=== PATIENT | male | born 1990 | race Caucasian/White ===

== ENCOUNTER 2021-12-26 03:05 | Inpatient (IN) ==
[2021-12-26] MEDS ORDERED: Ondansetron 4 MG/2 ML VIAL IVP PRN (05:17)
[2021-12-26] MEDS ORDERED: Melatonin 3 MG TABLET PO PRN (05:17)
[2021-12-26] MEDS ORDERED: Naloxone 0.4 MG/ML INJ IVP PRN (05:17)
[2021-12-26] MEDS: *HR* HYDROcodone/Acet 5/325 mg TABLET PO PRN ×3 (05:55→18:07)
[2021-12-26] MEDS ORDERED: Acetaminophen 325 MG TABLET PO PRN (06:00)
[2021-12-26] MEDS ORDERED: Dextrose 4 GM Chewable Tablets PO PRN ×2 (06:03)
[2021-12-26] MEDS ORDERED: D5% in Water 1,000 ML IVC PRN (06:03)
[2021-12-26] MEDS ORDERED: *HR* Dextrose 50 % in Water (Syg) 50 ML SYRINGE IVP PRN (06:03)
[2021-12-26 07:28] LABS: Basophils % 0.4 %; Eosinophils # 0.3 K/mcL (0.0-0.6); Eosinophils % 2.8 %; Hematocrit 39.5 % (37.5-50.1); Hemoglobin 13.2 g/dL (12.9-16.9); Immature Granulocytes % 0.5 % (0-4); Lymphocytes # 1.7 K/mcL (0.6-4.6); Lymphocytes % 16.3 %; Mean Corpuscular HGB Conc 33.4 g/dL (31.6-35.5); Mean Corpuscular Hemoglobin 30.7 pg (28.0-33.3); Mean Corpuscular Volume 91.9 fL (83.0-100.0); Mean Platelet Volume 8.9 fL (9.4-12.4); Monocytes % 9.8 %; Neutrophils # 7.4 K/mcL (1.6-8.9); Platelet Count 267 K/mcL (140-400); Red Cell Distribution Width 12.9 % (11.5-14.5); Segmented Neutrophils % 70.2 %; White Blood Count 10.6 K/mcL (4.3-11.1)
[2021-12-26 07:35] LABS: INR 0.9; Prothrombin Time 10.5 Seconds (9.4-12.1)
[2021-12-26 07:38] LABS: Activated Partial Thrombo Time 30.8 Seconds (26.0-36.0)
[2021-12-26] MEDS: Lactobacillus 1 EACH CAP.SPRINK PO SCH ×2 (07:50→20:55)
[2021-12-26 07:53] LABS: BUN/Creatinine Ratio 26 (6-26); Blood Urea Nitrogen 15 mg/dL (6-20); Calcium 9.1 mg/dL (8.6-10.3); Carbon Dioxide 30 mEq/L (23-29); Chloride 105 mEq/L (98-107); Glucose 118 mg/dL (70-105); Magnesium 1.9 mg/dL (1.6-2.6); Osmolality,Calculated 292 (280-300); Phosphorous 3.2 mg/dL (2.7-4.5); Potassium 3.8 mEq/L (3.5-5.1); Sodium 140 mEq/L (136-145); Troponin I < 0.03 ng/mL (< 0.04); eGFR For African Americans > 60 (> 60); eGFR For Non-African Americans > 60 (> 60)
[2021-12-26 07:56] LABS: C-Reactive Protein 27 mg/L (Less than 10)
[2021-12-26] MEDS ORDERED: Ertapenem 1,000 MG in 0.9 % Sodium Chloride Mini Bag 100 ML IVPB SCH (09:00)
[2021-12-26 11:36] LABS: Amphetamine Screen,Urine Positive ng/mL (Cutoff=1000); Barbiturate Screen,Urine Negative ng/mL (Cutoff=200); Benzodiazepines Screen,Urine Negative ng/mL (Cutoff=200); Cannabinoid Screen,Urine Positive ng/mL (Cutoff = 50); Cocaine Screen,Urine Negative ng/mL (Cutoff= 300); Opiate Screen,Urine Positive ng/mL (Cutoff=300); Phencyclidine Screen,Urine Negative ng/mL (Cutoff=25)
[2021-12-26] MEDS: levoFLOXacin 750 MG/150 ML 750 MG/150 ML BAG IVPB SCH (11:48)
[2021-12-26] MEDS: Nicotine 14 MG PATCH.TD24 TD SCH ×2 (11:52→15:33)
[2021-12-26] MEDS: *HR* OxyCODONE/APAP 5/325 TABLET PO PRN ×2 (13:21→20:56)
[2021-12-26] MEDS ORDERED: *HR* HYDROmorphone 2 MG/ML SYRINGE IVP ONE (14:14)
[2021-12-26] MEDS: *HR* FentaNYL PATCH 25 MCG PATCH TD SCH (19:09)
[2021-12-26] MEDS: Vancomycin 1,500 MG/265 ML IV.SOLN IVPB SCH (20:56)
[2021-12-26] MEDS: ALPRAZolam 0.25 MG TABLET PO PRN (22:45)
[2021-12-27] MEDS: *HR* HYDROcodone/Acet 5/325 mg TABLET PO PRN ×2 (01:09→08:46)
[2021-12-27] MEDS: *HR* OxyCODONE/APAP 5/325 TABLET PO PRN (03:16)
[2021-12-27] MEDS: *HR* Enoxaparin 40 MG/0.4 ML SYRINGE SQ SCH (04:22)
[2021-12-27] MEDS: Lactobacillus 1 EACH CAP.SPRINK PO SCH ×2 (07:50→20:24)
[2021-12-27] MEDS: ALPRAZolam 0.25 MG TABLET PO PRN (08:46)
[2021-12-27] MEDS: levoFLOXacin 750 MG/150 ML 750 MG/150 ML BAG IVPB SCH (08:50)
[2021-12-27] MEDS: Vancomycin 1,500 MG/265 ML IV.SOLN IVPB SCH (10:37)
[2021-12-27] MEDS: Nicotine 14 MG PATCH.TD24 TD SCH (10:39)
[2021-12-27] MEDS: Acetaminophen IV 1,000 MG/100 ML BAG IVPB SCH ×3 (12:14→23:39)
[2021-12-27] MEDS ORDERED: *HR* Propofol 200 MG/20 ML VIAL IVP ONE (12:38)
[2021-12-27] MEDS ORDERED: Lidocaine -MPF 2% 5 ML VIAL ONE (12:38)
[2021-12-27] MEDS ORDERED: *HR* FentaNYL (PF) 100 MCG/2 ML VIAL ONE (12:38)
[2021-12-27] MEDS ORDERED: *HR* Midazolam HCl 2 MG/2 ML VIAL ONE (12:38)
[2021-12-27] MEDS ORDERED: Lidocaine/EPI 1:100k 1% 50 ML VIAL ONE (13:07)
[2021-12-27] MEDS ORDERED: Ketamine HCL *QUVA* 50mg (1mL) SYRINGE ONE (13:25)
[2021-12-27] MEDS ORDERED: Ringers Solution, Lactated 1,000 ML IVC SCH (13:30)
[2021-12-27] MEDS ORDERED: *HR* HYDROmorphone PF 0.5 MG/0.5 ML SYRINGE IVP PRN (13:36)
[2021-12-27] MEDS: *HR* FentaNYL (PF) 100 MCG/2 ML VIAL IVP PRN ×2 (15:23→15:42)
[2021-12-27] MEDS: Fluticasone Propionate Nasal 50 MCG/SPRAY BOTTLE NS SCH (20:24)
[2021-12-27] MEDS: Vancomycin 1,750 MG/517.5 ML IV.SOLN IVPB SCH (20:24)
[2021-12-28 04:42] LABS: Basophils % 0.1 %; Hematocrit 36.5 % (37.5-50.1); Hemoglobin 12.4 g/dL (12.9-16.9); Immature Granulocytes % 0.6 % (0-4); Lymphocytes # 0.8 K/mcL (0.6-4.6); Lymphocytes % 5.2 %; Mean Corpuscular Hemoglobin 30.8 pg (28.0-33.3); Mean Corpuscular Volume 90.6 fL (83.0-100.0); Monocytes # 0.9 K/mcL (0.0-1.3); Monocytes % 5.5 %; Neutrophils # 13.8 K/mcL (1.6-8.9); Platelet Count 269 K/mcL (140-400); Red Blood Count 4.03 M/mcL (4.19-5.50); Red Cell Distribution Width 12.1 % (11.5-14.5); Segmented Neutrophils % 88.6 %; White Blood Count 15.6 K/mcL (4.3-11.1)
[2021-12-28] MEDS: Acetaminophen IV 1,000 MG/100 ML BAG IVPB SCH ×3 (05:29→22:43)
[2021-12-28] MEDS: *HR* Enoxaparin 40 MG/0.4 ML SYRINGE SQ SCH ×2 (05:29→05:34)
[2021-12-28 05:39] LABS: BUN/Creatinine Ratio 19 (6-26); Blood Urea Nitrogen 11 mg/dL (6-20); Calcium 8.5 mg/dL (8.6-10.3); Carbon Dioxide 26 mEq/L (23-29); Chloride 101 mEq/L (98-107); Glucose 244 mg/dL (70-105); Osmolality,Calculated 289 (280-300); Sodium 136 mEq/L (136-145); eGFR For African Americans > 60 (> 60); eGFR For Non-African Americans > 60 (> 60)
[2021-12-28] MEDS: levoFLOXacin 750 MG/150 ML 750 MG/150 ML BAG IVPB SCH (08:38)
[2021-12-28] MEDS: Lactobacillus 1 EACH CAP.SPRINK PO SCH ×2 (08:38→19:54)
[2021-12-28] MEDS: Vancomycin 1,750 MG/517.5 ML IV.SOLN IVPB SCH (08:41)
[2021-12-28] MEDS: Nicotine 14 MG PATCH.TD24 TD SCH (08:44)
[2021-12-28] MEDS: Ketorolac 30 MG/ML VIAL IVP PRN (11:07)
[2021-12-28] MEDS: ALPRAZolam 0.25 MG TABLET PO PRN (11:07)
[2021-12-28] MEDS: Fluticasone Propionate Nasal 50 MCG/SPRAY BOTTLE NS SCH (14:03)
[2021-12-28] MEDS: Vancomycin 1,250 MG/262.5 ML IV.SOLN IVPB SCH (17:41)
[2021-12-29] MEDS: Vancomycin 1,250 MG/262.5 ML IV.SOLN IVPB SCH ×3 (00:53→17:52)
[2021-12-29] MEDS: Acetaminophen IV 1,000 MG/100 ML BAG IVPB SCH ×4 (00:53→17:52)
[2021-12-29] MEDS: *HR* Enoxaparin 40 MG/0.4 ML SYRINGE SQ SCH (06:45)
[2021-12-29 06:47] LABS: Basophils # 0.1 K/mcL (0.0-0.2); Basophils % 0.7 %; Eosinophils # 0.1 K/mcL (0.0-0.6); Eosinophils % 0.6 %; Hematocrit 37.4 % (37.5-50.1); Hemoglobin 12.4 g/dL (12.9-16.9); Immature Granulocytes % 1.5 % (0-4); Lymphocytes # 2.4 K/mcL (0.6-4.6); Lymphocytes % 19.3 %; Mean Corpuscular HGB Conc 33.2 g/dL (31.6-35.5); Mean Corpuscular Hemoglobin 30.1 pg (28.0-33.3); Mean Corpuscular Volume 90.8 fL (83.0-100.0); Mean Platelet Volume 8.7 fL (9.4-12.4); Monocytes % 7.9 %; Neutrophils # 8.7 K/mcL (1.6-8.9); Platelet Count 300 K/mcL (140-400); Red Blood Count 4.12 M/mcL (4.19-5.50); Red Cell Distribution Width 12.5 % (11.5-14.5); White Blood Count 12.5 K/mcL (4.3-11.1)
[2021-12-29 07:00] LABS: BUN/Creatinine Ratio 22 (6-26); Blood Urea Nitrogen 14 mg/dL (6-20); Calcium 8.5 mg/dL (8.6-10.3); Carbon Dioxide 29 mEq/L (23-29); Chloride 105 mEq/L (98-107); Glucose 110 mg/dL (70-105); Osmolality,Calculated 291 (280-300); Potassium 4.1 mEq/L (3.5-5.1); Sodium 140 mEq/L (136-145); eGFR For African Americans > 60 (> 60); eGFR For Non-African Americans > 60 (> 60)
[2021-12-29] MEDS ORDERED: *HR* OxyCODONE Immed Rel 5 MG TABLET PO ONE (07:11)
[2021-12-29] MEDS: Lactobacillus 1 EACH CAP.SPRINK PO SCH ×2 (07:26→21:27)
[2021-12-29] MEDS: Nicotine 14 MG PATCH.TD24 TD SCH (11:38)
[2021-12-29] MEDS: Fluticasone Propionate Nasal 50 MCG/SPRAY BOTTLE NS SCH (11:38)
[2021-12-29] MEDS: *HR* LORazepam 2 MG/ML VIAL IVP PRN (20:07)
[2021-12-29] MEDS: *HR* FentaNYL PATCH 25 MCG PATCH TD SCH (21:26)
[2021-12-29] MEDS: Ketorolac 30 MG/ML VIAL IVP PRN (21:27)
[2021-12-30] MEDS: Vancomycin 1,250 MG/262.5 ML IV.SOLN IVPB SCH ×3 (00:55→16:51)
[2021-12-30] MEDS: Acetaminophen IV 1,000 MG/100 ML BAG IVPB SCH ×4 (01:15→17:28)
[2021-12-30] MEDS ORDERED: *HR* OxyCODONE Immed Rel 5 MG TABLET PO ONE (08:03)
[2021-12-30] MEDS: Nicotine 14 MG PATCH.TD24 TD SCH (08:55)
[2021-12-30] MEDS: Lactobacillus 1 EACH CAP.SPRINK PO SCH ×2 (08:55→21:02)
[2021-12-30] MEDS: Fluticasone Propionate Nasal 50 MCG/SPRAY BOTTLE NS SCH (10:46)
[2021-12-30] MEDS: *HR* LORazepam 2 MG/ML VIAL IVP PRN (14:25)
[2021-12-31] MEDS: Acetaminophen IV 1,000 MG/100 ML BAG IVPB SCH ×4 (00:37→17:45)
[2021-12-31] MEDS: Vancomycin 1,250 MG/262.5 ML IV.SOLN IVPB SCH ×3 (04:38→18:23)
[2021-12-31] MEDS: *HR* LORazepam 2 MG/ML VIAL IVP PRN ×3 (04:49→20:59)
[2021-12-31] MEDS: *HR* Enoxaparin 40 MG/0.4 ML SYRINGE SQ SCH ×2 (04:53→09:33)
[2021-12-31] MEDS: Lactobacillus 1 EACH CAP.SPRINK PO SCH ×2 (09:34→20:41)
[2021-12-31] MEDS ORDERED: *HR* OxyCODONE/APAP 7.5/325 TABLET PO PRN (10:45)
[2021-12-31] MEDS: Nicotine 14 MG PATCH.TD24 TD SCH (11:29)
[2021-12-31] MEDS: Fluticasone Propionate Nasal 50 MCG/SPRAY BOTTLE NS SCH (11:29)
[2021-12-31] MEDS: Ketorolac 30 MG/ML VIAL IVP PRN (15:23)
[2021-12-31] MEDS: *HR* OxyCODONE/APAP 7.5/325 TABLET PO PRN (18:00)
[2021-12-31] MEDS ORDERED: traZODone 50 MG TABLET PO PRN (22:23)
[2022-01-01] MEDS: *HR* OxyCODONE/APAP 7.5/325 TABLET PO PRN ×5 (00:23→19:50)
[2022-01-01] MEDS: Acetaminophen IV 1,000 MG/100 ML BAG IVPB SCH ×4 (00:25→14:49)
[2022-01-01] MEDS: Vancomycin 1,250 MG/262.5 ML IV.SOLN IVPB SCH ×3 (01:08→17:41)
[2022-01-01] MEDS: *HR* Enoxaparin 40 MG/0.4 ML SYRINGE SQ SCH (06:02)
[2022-01-01] MEDS: Nicotine 14 MG PATCH.TD24 TD SCH (09:13)
[2022-01-01] MEDS: Fluticasone Propionate Nasal 50 MCG/SPRAY BOTTLE NS SCH (09:13)
[2022-01-01] MEDS: Lactobacillus 1 EACH CAP.SPRINK PO SCH ×2 (09:59→19:49)
[2022-01-01] MEDS: *HR* LORazepam 2 MG/ML VIAL IVP PRN ×3 (10:14→19:51)
[2022-01-01] MEDS: *HR* FentaNYL PATCH 25 MCG PATCH TD SCH (19:52)
[2022-01-02] MEDS: Vancomycin 1,250 MG/262.5 ML IV.SOLN IVPB SCH ×3 (01:01→18:38)
[2022-01-02] MEDS: Acetaminophen IV 1,000 MG/100 ML BAG IVPB SCH ×3 (01:04→12:35)
[2022-01-02] MEDS: *HR* LORazepam 2 MG/ML VIAL IVP PRN ×4 (01:09→18:36)
[2022-01-02] MEDS: *HR* OxyCODONE/APAP 7.5/325 TABLET PO PRN ×4 (01:09→18:35)
[2022-01-02] MEDS: *HR* Enoxaparin 40 MG/0.4 ML SYRINGE SQ SCH (06:20)
[2022-01-02 07:08] LABS: Hematocrit 38.6 % (37.5-50.1); Hemoglobin 13.1 g/dL (12.9-16.9); Mean Corpuscular HGB Conc 33.9 g/dL (31.6-35.5); Mean Corpuscular Hemoglobin 30.2 pg (28.0-33.3); Mean Corpuscular Volume 88.9 fL (83.0-100.0); Mean Platelet Volume 8.4 fL (9.4-12.4); Platelet Count 294 K/mcL (140-400); Red Blood Count 4.34 M/mcL (4.19-5.50); Red Cell Distribution Width 12.3 % (11.5-14.5); White Blood Count 7.8 K/mcL (4.3-11.1)
[2022-01-02 07:24] LABS: BUN/Creatinine Ratio 25 (6-26); Blood Urea Nitrogen 19 mg/dL (6-20); Calcium 9.1 mg/dL (8.6-10.3); Carbon Dioxide 29 mEq/L (23-29); Chloride 102 mEq/L (98-107); Glucose 100 mg/dL (70-105); Osmolality,Calculated 286 (280-300); Potassium 4.4 mEq/L (3.5-5.1); Sodium 137 mEq/L (136-145); eGFR For African Americans > 60 (> 60); eGFR For Non-African Americans > 60 (> 60)
[2022-01-02] MEDS: Lactobacillus 1 EACH CAP.SPRINK PO SCH ×2 (08:16→20:14)
[2022-01-02] MEDS: Nicotine 14 MG PATCH.TD24 TD SCH (08:25)
[2022-01-02] MEDS: Fluticasone Propionate Nasal 50 MCG/SPRAY BOTTLE NS SCH (08:25)
[2022-01-02] MEDS ORDERED: Lidocaine -MPF 1% 5 ML AMPUL INFILT ONE (15:17)
[2022-01-03] MEDS: Vancomycin 1,250 MG/262.5 ML IV.SOLN IVPB SCH ×2 (01:02→11:51)
[2022-01-03] MEDS: *HR* OxyCODONE/APAP 7.5/325 TABLET PO PRN ×4 (01:12→16:44)
[2022-01-03] MEDS: *HR* LORazepam 2 MG/ML VIAL IVP PRN ×3 (01:12→13:13)
[2022-01-03 03:11] VITALS: O2SAT 96
[2022-01-03] MEDS: *HR* Enoxaparin 40 MG/0.4 ML SYRINGE SQ SCH (05:26)
[2022-01-03 05:27] LABS: BUN/Creatinine Ratio 24 (6-26); Blood Urea Nitrogen 19 mg/dL (6-20); Calcium 8.7 mg/dL (8.6-10.3); Carbon Dioxide 27 mEq/L (23-29); Chloride 102 mEq/L (98-107); Glucose 130 mg/dL (70-105); Magnesium 1.9 mg/dL (1.6-2.6); Osmolality,Calculated 290 (280-300); Phosphorous 3.7 mg/dL (2.7-4.5); Potassium 3.8 mEq/L (3.5-5.1); Sodium 138 mEq/L (136-145); eGFR For African Americans > 60 (> 60); eGFR For Non-African Americans > 60 (> 60)
[2022-01-03 06:58] VITALS: BP 100/59; PULSE 83; TEMP 98.6
[2022-01-03] MEDS: Lactobacillus 1 EACH CAP.SPRINK PO SCH (07:37)
[2022-01-03] MEDS: Fluticasone Propionate Nasal 50 MCG/SPRAY BOTTLE NS SCH (07:38)
[2022-01-03] MEDS: Nicotine 14 MG PATCH.TD24 TD SCH (11:51)
[2022-01-03 13:33] LABS: Adenovirus Not Detected (Not Detect); Bordetella Pertussis Not Detected (Not Detect); Chlamydophila pneumoniae Not Detected (Not Detect); Coronavirus 229E Not Detected (Not Detect); Coronavirus HKU1 Not Detected (Not Detect); Coronavirus NL63 Not Detected (Not Detect); Coronavirus OC43 Not Detected (Not Detect); Human Metapneumovirus Not Detected (Not Detect); Human Rhinovirus/Enterovirus Not Detected (Not Detect); Influenza A Subtype 2009 H1 Not Detected (Not Detect); Influenza B Not Detected (Not Detect); Mycoplasma pneumoniae Not Detected (Not Detect); Parainfluenza Virus 1 Not Detected (Not Detect); Parainfluenza Virus 2 Not Detected (Not Detect); Parainfluenza Virus 3 Not Detected (Not Detect); Parainfluenza Virus 4 Not Detected (Not Detect); Respiratory Syncytial Virus Not Detected (Not Detect); SARS-CoV-2 Not Detected (Not Detect)
[2022-01-03] MEDS ORDERED: Vancomycin 1,250 MG/262.5 ML IV.SOLN IVPB SCH (20:00)
== END 2022-01-03 18:03 | DRG 320 ==
LOC: 4WAOSI → SUATTDRO 04:37
PROVIDERS: ADMIT Internal Medicine; ATTEND Internal Medicine

== ENCOUNTER 2022-01-06 15:53 | Observation (INO) ==
[2022-01-06] MEDS ORDERED: Melatonin 3 MG TABLET PO PRN (20:33)
[2022-01-06] MEDS ORDERED: Naloxone 0.4 MG/ML INJ IVP PRN (20:33)
[2022-01-06] MEDS ORDERED: *HR* Promethazine 25 MG/ML VIAL IM PRN (20:33)
[2022-01-06] MEDS ORDERED: Acetaminophen 325 MG TABLET PO PRN (20:33)
[2022-01-06] MEDS ORDERED: DiphenhydraMINE CREAM 28.4 GM TUBE TP PRN (22:25)
[2022-01-06] MEDS: Lactobacillus 1 EACH CAP.SPRINK PO SCH (22:37)
[2022-01-06] MEDS ORDERED: *HR* Dextrose 50 % in Water (Syg) 50 ML SYRINGE IVP PRN (22:51)
[2022-01-06] MEDS ORDERED: D5% in Water 1,000 ML IVC PRN (22:51)
[2022-01-06] MEDS ORDERED: Dextrose 4 GM Chewable Tablets PO PRN ×2 (22:51)
[2022-01-06] MEDS ORDERED: Ipratropium/Albuterol Neb 3 ML IH PRN (23:04)
[2022-01-06 23:18] LABS: BUN/Creatinine Ratio 32 (6-26); Blood Urea Nitrogen 25 mg/dL (6-20); Calcium 9.1 mg/dL (8.6-10.3); Carbon Dioxide 29 mEq/L (23-29); Chloride 102 mEq/L (98-107); Glucose 120 mg/dL (70-105); Osmolality,Calculated 290 (280-300); Potassium 3.7 mEq/L (3.5-5.1); Sodium 137 mEq/L (136-145); eGFR For African Americans > 60 (> 60); eGFR For Non-African Americans > 60 (> 60)
[2022-01-06] MEDS: *HR* OxyCODONE/APAP 7.5/325 TABLET PO PRN (23:23)
[2022-01-06 23:31] LABS: Magnesium 1.9 mg/dL (1.6-2.6); Phosphorous 3.7 mg/dL (2.7-4.5)
[2022-01-07 00:37] LABS: Basophils # 0.1 K/mcL (0.0-0.2); Eosinophils # 0.3 K/mcL (0.0-0.6); Eosinophils % 3.6 %; Hematocrit 37.2 % (37.5-50.1); Hemoglobin 12.8 g/dL (12.9-16.9); Immature Granulocytes % 0.6 % (0-4); Lymphocytes # 2.2 K/mcL (0.6-4.6); Lymphocytes % 31.1 %; Mean Corpuscular HGB Conc 34.4 g/dL (31.6-35.5); Mean Corpuscular Hemoglobin 31.1 pg (28.0-33.3); Mean Corpuscular Volume 90.5 fL (83.0-100.0); Mean Platelet Volume 9.1 fL (9.4-12.4); Monocytes # 0.6 K/mcL (0.0-1.3); Neutrophils # 3.8 K/mcL (1.6-8.9); Platelet Count 301 K/mcL (140-400); Red Blood Count 4.11 M/mcL (4.19-5.50); Red Cell Distribution Width 12.7 % (11.5-14.5); Segmented Neutrophils % 54.7 %
[2022-01-07 00:44] LABS: BUN/Creatinine Ratio 30 (6-26); Blood Urea Nitrogen 24 mg/dL (6-20); Calcium 9.1 mg/dL (8.6-10.3); Carbon Dioxide 29 mEq/L (23-29); Chloride 102 mEq/L (98-107); Glucose 117 mg/dL (70-105); Osmolality,Calculated 287 (280-300); Potassium 3.8 mEq/L (3.5-5.1); Sodium 136 mEq/L (136-145); eGFR For African Americans > 60 (> 60); eGFR For Non-African Americans > 60 (> 60)
[2022-01-07] MEDS: Vancomycin 1,250 MG/262.5 ML IV.SOLN IVPB SCH ×3 (06:05→20:17)
[2022-01-07] MEDS: *HR* OxyCODONE/APAP 7.5/325 TABLET PO PRN ×3 (06:11→18:44)
[2022-01-07] MEDS ORDERED: 0.9 % Sodium Chloride 1,000 ML IVC SCH (06:45)
[2022-01-07 07:02] LABS: Basophils # 0.1 K/mcL (0.0-0.2); Basophils % 1.1 %; Eosinophils # 0.2 K/mcL (0.0-0.6); Eosinophils % 4.3 %; Hematocrit 37.1 % (37.5-50.1); Hemoglobin 12.5 g/dL (12.9-16.9); Immature Granulocytes % 0.7 % (0-4); Lymphocytes # 1.8 K/mcL (0.6-4.6); Lymphocytes % 32.7 %; Mean Corpuscular HGB Conc 33.7 g/dL (31.6-35.5); Mean Corpuscular Hemoglobin 30.3 pg (28.0-33.3); Mean Platelet Volume 8.7 fL (9.4-12.4); Monocytes # 0.6 K/mcL (0.0-1.3); Monocytes % 10.4 %; Neutrophils # 2.8 K/mcL (1.6-8.9); Platelet Count 270 K/mcL (140-400); Red Blood Count 4.12 M/mcL (4.19-5.50); Red Cell Distribution Width 12.7 % (11.5-14.5); Segmented Neutrophils % 50.8 %; White Blood Count 5.6 K/mcL (4.3-11.1)
[2022-01-07] MEDS: Lactobacillus 1 EACH CAP.SPRINK PO SCH ×2 (07:53→20:17)
[2022-01-07] MEDS: *HR* LORazepam 0.5 MG TABLET PO PRN (07:54)
[2022-01-07] MEDS: Chlorhexidine Rinse 15 ML MOUTHWASH MM SCH ×2 (07:54→20:17)
[2022-01-07] MEDS: Nicotine 14 MG PATCH.TD24 TD SCH (07:54)
[2022-01-08] MEDS: *HR* OxyCODONE/APAP 7.5/325 TABLET PO PRN ×4 (03:58→18:29)
[2022-01-08 04:47] LABS: BUN/Creatinine Ratio 22 (6-26); Blood Urea Nitrogen 16 mg/dL (6-20); Calcium 8.9 mg/dL (8.6-10.3); Carbon Dioxide 28 mEq/L (23-29); Chloride 104 mEq/L (98-107); Glucose 100 mg/dL (70-105); Osmolality,Calculated 287 (280-300); Potassium 3.8 mEq/L (3.5-5.1); Sodium 138 mEq/L (136-145); eGFR For African Americans > 60 (> 60); eGFR For Non-African Americans > 60 (> 60)
[2022-01-08] MEDS: Vancomycin 1,250 MG/262.5 ML IV.SOLN IVPB SCH ×3 (05:02→19:58)
[2022-01-08] MEDS: *HR* LORazepam 0.5 MG TABLET PO PRN (08:28)
[2022-01-08] MEDS: Nicotine 14 MG PATCH.TD24 TD SCH (08:28)
[2022-01-08] MEDS: Chlorhexidine Rinse 15 ML MOUTHWASH MM SCH ×2 (08:28→19:58)
[2022-01-08] MEDS: Lactobacillus 1 EACH CAP.SPRINK PO SCH ×2 (08:28→19:58)
[2022-01-08] MEDS ORDERED: Ketorolac 30 MG/ML VIAL IVP ONE (09:42)
[2022-01-08] MEDS ORDERED: Ondansetron 4 MG/2 ML VIAL IVP PRN (09:43)
[2022-01-09] MEDS: *HR* OxyCODONE/APAP 7.5/325 TABLET PO PRN ×4 (04:26→21:20)
[2022-01-09] MEDS: Vancomycin 1,250 MG/262.5 ML IV.SOLN IVPB SCH ×3 (04:26→21:58)
[2022-01-09] MEDS: Lactobacillus 1 EACH CAP.SPRINK PO SCH ×2 (07:49→21:20)
[2022-01-09] MEDS: Chlorhexidine Rinse 15 ML MOUTHWASH MM SCH ×2 (07:49→21:20)
[2022-01-09] MEDS: Nicotine 14 MG PATCH.TD24 TD SCH (07:51)
[2022-01-10] MEDS: *HR* OxyCODONE/APAP 7.5/325 TABLET PO PRN ×3 (05:42→21:48)
[2022-01-10] MEDS: Chlorhexidine Rinse 15 ML MOUTHWASH MM SCH ×2 (09:33→20:05)
[2022-01-10] MEDS: Lactobacillus 1 EACH CAP.SPRINK PO SCH ×2 (09:33→20:05)
[2022-01-10] MEDS: Nicotine 14 MG PATCH.TD24 TD SCH (09:33)
[2022-01-10 21:05] VITALS: BP 122/70; PULSE 66; TEMP 98; O2SAT 99
== END 2022-01-10 22:13 | disposition home or self-care (01) ==
LOC: 4WAOSI → SUATTDRO 20:01 → 3BNU 01-09 09:54
PROVIDERS: ADMIT Internal Medicine; ATTEND Internal Medicine